=== PATIENT | female | born 1990 | race Caucasian/White ===

== ENCOUNTER 2017-01-19 14:05 | Inpatient (IN) | payer OTHER ==
[~2017-01-19 14:05] MED LIST: MOTRIN-DPS800 MG PO; NIPPLECREAM TP; PRENATAL VIT1 TAB PO; PRILOSEC DPS20 MG PO; TYLENOL #3 DPS1 TAB PO
[2017-01-22] MEDS ORDERED: COLACE-DPS100 MG PO (06:36)
== END 2017-01-21 11:45 | disposition home or self-care (01) | DRG 775 ==
DX: O99.824 Streptococcus B carrier state complicating childbirth (principal); E66.3 Overweight; D64.9 Anemia, unspecified; O99.02 Anemia complicating childbirth; O26.03 Excessive weight gain in pregnancy, third trimester; Z68.29 Body mass index [BMI] 29.0-29.9, adult; Z3A.38 38 weeks gestation of pregnancy; Z37.0 Single live birth